=== PATIENT | female | born 1935 | race Caucasian/White ===

== ENCOUNTER 2016-12-14 18:58 | Emergency (ER) | payer MEDICARE, OTHER ==
[2016-12-14] MEDS ORDERED: NS 0.9% 1000 ML* 1,000 ML IV ONE (20:15)
--- NOTE | 2016-12-14 20:22 | ED ---
Willie Perez Benjamin, scribed for Pérez Jean Baptiste MD on 12/14/16 at 1959 . HPI Chest Pain - HPI Summary HPI Summary: 81yo female c/ on and off lower CP that radiates to the back this morning after breakfast. Episodes last for hrs. Pt took 2 advil pills, but didnt help. No previous CP episodes. Pt also reports nausea and vomiting x3. Still in pain currently. Denies SOB. - History of Current Complaint Chief Complaint: EDChestPainROMI Time Seen by Provider: 12/14/16 19:49 Hx Obtained From: Patient, Family/[employer] Sales Representative - Onset/Duration: Started Hours Ago, Atraumatic, Still Present Timing: Intermittent Initial Severity: Mild Current Severity: Mild Pain Intensity: 4 Pain Scale Used: 0-10 Numeric Chest Pain Location: Diffuse Chest Pain Radiates: Yes Chest Pain Radiates To:: Back Aggravating Factor(s): Nothing Alleviating Factor(s): Nothing Associated Signs and Symptoms: Positive: Chest Pain, Nausea, Vomiting - x3. Negative: Shortness of Breath - Allergy/Home Medications Allergies/Adverse Reactions: Allergies Allergy/AdvReac Type Severity Reaction Status Date / Time No Known Allergies Allergy Verified 12/14/16 19:29 PMH/Surg Hx/FS Hx/Imm Hx Cardiovascular History: Reports: Hx Hypercholesterolemia Musculoskeletal History: Denies: Hx Osteoporosis - Cancer History Cancer Type, Location and Year: left breast CA with lumpectomy Hx Chemotherapy: No Hx Radiation Therapy: Yes - Surgical History Surgery Procedure, Year, and Place: [facility]; Left breast CA with lumpectomy Infectious Disease History: No Infectious Disease History: Denies: Traveled Outside the [place] in Last 30 Days - Family History Known Family History: Positive: Cardiac Disease Negative: Hypertension, Diabetes - Social History Occupation: Retired Lives: With Family Alcohol Use: Rare Hx Substance Use: No Hx Tobacco Use: Yes Review of Systems Constitutional: Negative Eyes: Negative ENT: Negative Positive: Chest Pain - radiating to back Respiratory: Negative Positive: Vomiting, Nausea. Negative: Diarrhea Genitourinary: Negative Musculoskeletal: Negative Skin: Negative Neurological: Negative Psychological: Normal All Other Systems Reviewed And Are Negative: Yes Physical Exam Triage Information Reviewed: Yes Vital Signs On Initial Exam: Initial Vitals Temp Pulse Resp BP Pulse Ox 97.9 F 52 18 155/62 100 12/14/16 19:24 12/14/16 19:24 12/14/16 19:24 12/14/16 19:24 12/14/16 19:24 Vital Signs Reviewed: Yes Appearance: Positive: Well-Appearing, No Pain Distress Skin: Positive: Warm Head/Face: Positive: Normal Head/Face Inspection Eyes: Positive: ROGE ENT: Positive: Hearing grossly normal Neck: Positive: Supple Respiratory/Lung Sounds: Positive: Clear to Auscultation, Breath Sounds Present Cardiovascular: Positive: RRR Abdomen Description: Positive: Nontender, No Organomegaly, Soft Bowel Sounds: Positive: Present Musculoskeletal: Positive: Strength/ROM Intact Neurological: Positive: Alert, Oriented to Person Place, Time, Normal Gait Psychiatric: Positive: Affect/Mood Appropriate Diagnostics - Vital Signs Vital Signs Temp Pulse Resp BP Pulse Ox 12/14/16 19:24 97.9 F 52 18 155/62 100 - Laboratory Result Diagrams: 12/14/16 20:15 12/14/16 20:15 Lab Statement: Any lab studies that have been ordered have been reviewed, and results considered in the medical decision making process. - EKG 1931. Cardiac Rate: Bradycardia - 59bpm EKG Rhythm: Sinus Bradycardia ST Segment: Normal Ectopy: None Re-Evaluation - Re-Evaluation First Eval Change: Improved - remains pain free, wants to go home Chest Pain Course/Dx - Diagnoses Provider Diagnoses: Abdominal pain Discharge - Discharge Plan Condition: Stable Disposition: HOME Patient Education Materials: Abdominal Pain (ED), Diet for Stomach Ulcers and Gastritis (ED) Referrals: Non Staff,Doctor [Primary Care Provider] - The documentation as recorded by the Willie aguilar Benjamin accurately reflects the service I personally performed and the decisions made by me, Pérez Jean Baptiste MD.
[2016-12-14 20:26] LABS: Hematocrit 44 % (35-47); Hemoglobin 14.8 g/dl (12.0-16.0); Mean Corpuscular HGB Conc 33 g/dl (31-36); Mean Corpuscular Hemoglobin 30 pg (27-31); Mean Corpuscular Volume 90 fL (80-97); Mean Platelet Volume 8 um3 (7.4-10.4); Red Blood Count 4.92 10^6/ul (4.0-5.4); Red Cell Distribution Width 13 % (10.5-15); White Blood Count 7.5 10^3/ul (3.5-10.8)
[2016-12-14 20:47] LABS: Albumin 4.3 g/dL (3.2-5.2); C Reactive Protein 1.57 mg/L (< 5.00); Calcium 9.2 mg/dL (8.6-10.3); EGFR African American 86.8 (>60); EGFR Non-African American 67.5 (>60); Globulin 3.1 g/dL (2-4); Magnesium 2.1 mg/dL (1.9-2.7); Potassium 3.9 mmol/L (3.5-5.0); Total Bilirubin 0.3 mg/dL (0.2-1.0); Total Protein 7.4 g/dL (6.4-8.9)
[2016-12-14 21:51] LABS: Urine Bacteria Absent (Absent); Urine Bilirubin Negative (Negative); Urine Glucose Negative (Negative); Urine Nitrite Negative (Negative)
[2016-12-14 22:20] VITALS: BP 169/52
== END 2016-12-14 22:21 | disposition home or self-care (01) ==
LOC: ED 18:58
DX: R10.9 Unspecified abdominal pain (principal); E78.00 Pure hypercholesterolemia, unspecified
CPT/HCPCS: 36415; 80053; 81003; 81015; 83605; 83690; 83735; 84484; 85025; 86140; 87086; 93005; 99283

== ENCOUNTER 2016-12-23 11:18 | Emergency (ER) | payer MEDICARE, OTHER ==
[2016-12-23 12:52] LABS: Hematocrit 47 % (35-47); Hemoglobin 15.5 g/dl (12.0-16.0); Mean Corpuscular HGB Conc 33 g/dl (31-36); Mean Corpuscular Hemoglobin 30 pg (27-31); Mean Corpuscular Volume 91 fL (80-97); Mean Platelet Volume 8 um3 (7.4-10.4); Red Cell Distribution Width 13 % (10.5-15); White Blood Count 10.5 10^3/ul (3.5-10.8)
--- NOTE | 2016-12-23 12:53 | RAD ---
INDICATION: Chest pain COMPARISON: March 26, 2013 TECHNIQUE: PA and lateral dual-energy views were obtained. FINDINGS: Bones/Soft Tissues: There are no acute bony findings. Cardiomediastinal: The cardiomediastinal silhouette is normal. Lungs: There are no infiltrates. Pleura: There are no pleural effusions. Other: None IMPRESSION: NO ACTIVE DISEASE.
[2016-12-23 13:12] LABS: Albumin 4.3 g/dL (3.2-5.2); BUN/Creatinine Ratio 12.8 (8-20); Calcium 9.3 mg/dL (8.6-10.3); EGFR African American 90.7 (>60); EGFR Non-African American 70.5 (>60); Globulin 3.3 g/dL (2-4); Potassium 3.6 mmol/L (3.5-5.0); Total Bilirubin 1.1 mg/dL (0.2-1.0); Total Protein 7.6 g/dL (6.4-8.9)
[2016-12-23] MEDS ORDERED: Ondansetron INJ* 2 MG/ML VIAL IV ONE (15:31)
[2016-12-23] MEDS ORDERED: HYDROmorphone* 1 MG/ML 1 ML SYR IV ONE (15:31)
--- NOTE | 2016-12-23 15:34 | RAD ---
INDICATION: ] Right upper quadrant pain COMPARISON: None TECHNIQUE: Longitudinal and transverse scans of the right upper quadrant were obtained. Doppler interrogation of the hepatic and portal venous system was performed. FINDINGS: Liver: The liver is normal in size and echogenicity. There are no focal masses. The liver measures 14.6 cm in cephalocaudal dimension. Vessels: There is normal hepatic and portal venous flow. Bile ducts: There is no evidence of intrahepatic or extrahepatic ductal dilatation. The common duct measures 0.5 cm. Gallbladder: There are multiple tiny gallstones. There is no evidence of cholelithiasis, thickening of the gallbladder wall, or pericholecystic fluid. Pancreas: The visualized pancreas appears normal Right kidney: The right kidney is normal in size and echogenicity. There are no masses or calculi. There is no evidence of hydronephrosis. The right kidney measures 9.0 x 3.1 x 3.9 cm. IVC and aorta: The aorta and superior vena cava appear normal. Fluid: There is no ascites. Other: None. IMPRESSION: MULTIPLE TINY GALLSTONES
[2016-12-23 17:09] VITALS: BP 122/51
--- NOTE | 2016-12-23 18:31 | ED ---
Neto Perez Salem, scribed for Femi Del Real MD on 12/23/16 at 1157 . HPI Chest Pain - HPI Summary HPI Summary: Patient is a 81 y/o F who presents to the ED with upper thoracic pain since last night. She reports pain radiates around bilateral chest and into mid- sternum. Pt states that she was in the ED on 12/14/16 for the similar sx which resolved at that time with no medication. Pain is not aggravated with breathing , but it is worse with movement. She denies nausea, SOB, or edema of lower extremities, but reports an intermittent productive cough. 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 Negative : Shortness of Breath, Nausea, Edema - Allergy/Home Medications Allergies/Adverse Reactions: Allergies Allergy/AdvReac Type Severity Reaction Status Date / Time No Known Allergies Allergy Verified 12/14/16 19:29 PMH/Surg Hx/FS Hx/Imm Hx Cardiovascular History: Reports: Hx Hypercholesterolemia Musculoskeletal History: Denies: Hx Osteoporosis - Cancer History Cancer Type, Location and Year: left breast CA with lumpectomy Hx Chemotherapy: No Hx Radiation Therapy: Yes - Surgical History Surgery Procedure, Year, and Place: [facility]; Left breast CA with lumpectomy Infectious Disease History: No Infectious Disease History: Denies: Traveled Outside the [place] in Last 30 Days - Family History Known Family History: Positive: Cardiac Disease Negative: Hypertension, Diabetes - Social History Alcohol Use: Rare Hx Substance Use: No Substance Use Type: Reports: None Hx Tobacco Use: Yes Smoking Status (MU): Never Smoked Tobacco Review of Systems Positive: Chest Pain - Upper thoracic pain. Positive: Cough. Negative: Shortness Of Breath Negative: Nausea Negative: Edema All Other Systems Reviewed And Are Negative: Yes Physical Exam Triage Information Reviewed: Yes Vital Signs On Initial Exam: Initial Vitals Temp Pulse Resp BP Pulse Ox 97.7 F 59 20 152/56 100 12/23/16 11:21 12/23/16 11:21 12/23/16 11:21 12/23/16 11:21 12/23/16 11:21 Vital Signs Reviewed: Yes Appearance: Positive: Well-Appearing, No Pain Distress, Well-Nourished Skin: Positive: Warm, Skin Color Reflects Adequate Perfusion, Dry Head/Face: Positive: Normal Head/Face Inspection Eyes: Positive: Normal Neck: Positive: Supple, Nontender Respiratory/Lung Sounds: Positive: Clear to Auscultation, Breath Sounds Present Cardiovascular: Positive: RRR Abdomen Description: Positive: Soft, Other: - Tenderness in epigastric. Musculoskeletal: Positive: Normal Neurological: Positive: Normal Psychiatric: Positive: Normal, Affect/Mood Appropriate Diagnostics - Vital Signs Vital Signs Temp Pulse Resp BP Pulse Ox 12/23/16 11:21 97.7 F 59 20 152/56 100 - Laboratory Lab Results: Lab Results 12/23/16 12/23/16 12/23/16 Range/Units 12:43 12:43 12:43 WBC 10.5 (3.5-10.8) 10^3/ul RBC 5.20 (4.0-5.4) 10^6/ul Hgb 15.5 (12.0-16.0) g/dl Hct 47 (35-47) % MCV 91 (80-97) fL MCH 30 (27-31) pg MCHC 33 (31-36) g/dl RDW 13 (10.5-15) % Plt Count 225 (150-450) 10^3/ul MPV 8 (7.4-10.4) um3 Neut % (Auto) 85.4 H (38-83) % Lymph % (Auto) 9.8 L (25-47) % Fleming % (Auto) 4.3 (1-9) % Eos % (Auto) 0.1 (0-6) % Baso % (Auto) 0.4 (0-2) % Absolute Neuts (auto) 9.0 H (1.5-7.7) 10^3/ul Absolute Lymphs (auto) 1.0 (1.0-4.8) 10^3/ul Absolute Monos (auto) 0.5 (0-0.8) 10^3/ul Absolute Eos (auto) 0 (0-0.6) 10^3/ul Absolute Basos (auto) 0 (0-0.2) 10^3/ul Absolute Nucleated RBC 0.01 10^3/ul Nucleated RBC % 0 INR (Anticoag Therapy) (0.89-1.11) Sodium 137 (133-145) mmol/L Potassium 3.6 (3.5-5.0) mmol/L Chloride 99 L (101-111) mmol/L Carbon Dioxide 30 (22-32) mmol/L Anion Gap 8 (2-11) mmol/L BUN 10 (6-24) mg/dL Creatinine 0.78 (0.51-0.95) mg/dL Est GFR ( Amer) 90.7 (>60) Est GFR (Non-Af Amer) 70.5 (>60) BUN/Creatinine Ratio 12.8 (8-20) Glucose 128 H (70-100) mg/dL Lactic Acid 1.4 (0.5-2.0) mmol/L Calcium 9.3 (8.6-10.3) mg/dL Total Bilirubin 1.10 H (0.2-1.0) mg/dL AST 133 H (13-39) U/L ALT 53 H (7-52) U/L Alkaline Phosphatase 109 H (34-104) U/L Troponin I 0.00 (<0.04) ng/mL Total Protein 7.6 (6.4-8.9) g/dL Albumin 4.3 (3.2-5.2) g/dL Globulin 3.3 (2-4) g/dL Albumin/Globulin Ratio 1.3 (1-3) Lipase 37 (11.0-82.0) U/L 12/23/16 12/23/16 Range/Units 12:43 15:25 WBC (3.5-10.8) 10^3/ul RBC (4.0-5.4) 10^6/ul Hgb (12.0-16.0) g/dl Hct (35-47) % MCV (80-97) fL MCH (27-31) pg MCHC (31-36) g/dl RDW (10.5-15) % Plt Count (150-450) 10^3/ul MPV (7.4-10.4) um3 Neut % (Auto) (38-83) % Lymph % (Auto) (25-47) % Fleming % (Auto) (1-9) % Eos % (Auto) (0-6) % Baso % (Auto) (0-2) % Absolute Neuts (auto) (1.5-7.7) 10^3/ul Absolute Lymphs (auto) (1.0-4.8) 10^3/ul Absolute Monos (auto) (0-0.8) 10^3/ul Absolute Eos (auto) (0-0.6) 10^3/ul Absolute Basos (auto) (0-0.2) 10^3/ul Absolute Nucleated RBC 10^3/ul Nucleated RBC % INR (Anticoag Therapy) 0.88 L (0.89-1.11) Sodium (133-145) mmol/L Potassium (3.5-5.0) mmol/L Chloride (101-111) mmol/L Carbon Dioxide (22-32) mmol/L Anion Gap (2-11) mmol/L BUN (6-24) mg/dL Creatinine (0.51-0.95) mg/dL Est GFR ( Amer) (>60) Est GFR (Non-Af Amer) (>60) BUN/Creatinine Ratio (8-20) Glucose (70-100) mg/dL Lactic Acid (0.5-2.0) mmol/L Calcium (8.6-10.3) mg/dL Total Bilirubin (0.2-1.0) mg/dL AST (13-39) U/L ALT (7-52) U/L Alkaline Phosphatase (34-104) U/L Troponin I 0.00 (<0.04) ng/mL Total Protein (6.4-8.9) g/dL Albumin (3.2-5.2) g/dL Globulin (2-4) g/dL Albumin/Globulin Ratio (1-3) Lipase (11.0-82.0) U/L Result Diagrams: 12/23/16 12:43 12/23/16 12:43 Diagnostic Studies Comment: Trop 1: 0.00 Lab Statement: Any lab studies that have been ordered have been reviewed, and results considered in the medical decision making process. - Radiology CXR Radiology Interpretation Completed By: Radiologist - IMPRESSION: NO ACTIVE DISEASE. - Ultrasound No standard instances Ultrasound Interpretation Completed By: Radiologist - GALLBLADDER IMPRESSION: MULTIPLE TINY GALLSTONES - EKG 1236 EKG Interpretation: NSR @ 66 bpm. Re-Evaluation - Re-Evaluation First Eval Re-Evaluation Time: 16:11 Comment: Informed pt of consultation with Dr. Rasmussen. Chest Pain Course/Dx - Course Course Of Treatment: Ms. Stevens returned with a recurrence of the epigastric pain that she was here for earlier. She was tender in the epigastrium and RUQ and her WBCs were still OK but her AST, ALT, ALP and T.Bili were all a little elevated this time. An U/S of her RUQ was negative and her pain improved completely with some pain medicine. She is on pravastatin which can elevat transaminases and this could be a coincidence but I spole with Dr. Rasmussen about close F/U. - Diagnoses Provider Diagnoses: Epigastric abdominal pain - Provider Notifications Discussed Care Of Patient With: Alek Rasmussen Time Discussed With Above Provider: 16:03 Instructed by Provider To: Other - Discussed case. Admit/Transition Orders Completed By ED Provider: Yes Discharge - Discharge Plan Condition: Stable Disposition: HOME Prescriptions: Sucralfate TAB* [Carafate*] 1 gm PO QID #40 tab Patient Education Materials: Epigastric Pain (ED) Referrals: Alek Rasmussen MD [Medical Doctor] - Additional Instructions: Please stop taking the Pravastatin and start taking Sucralfate. Follow up with Dr. Rasmussen (GI). The documentation as recorded by the Neto aguilar Salem accurately reflects the service I personally performed and the decisions made by me, Femi Del Real MD.
== END 2016-12-23 17:08 | disposition home or self-care (01) ==
LOC: ED 11:18
DX: R10.13 Epigastric pain (principal); R07.9 Chest pain, unspecified; R05 Cough
CPT/HCPCS: 36415; 71020; 76705; 80053; 83605; 83690; 84484; 85025; 85610; 93005; 99283; J1170; J2405

== ENCOUNTER 2023-06-04 15:17 | Inpatient (IN) ==
[2023-06-04 15:58] LABS: ABS Basophils 0.1 10^3/uL (0.0-0.1); ABS Lymphocytes 1.4 10^3/uL (1.0-4.8); ABS Monocytes 0.4 10^3/uL (0.0-0.9); ABS Neutrophils 4.2 10^3/uL (1.5-7.6); Eosinophil % 0.6 %; Hematocrit 33.2 % (35-45); Hemoglobin 10.8 g/dL (11.5-14.3); Lymphocyte % 23.4 %; Mean Corpuscular Hemoglobin 25.6 pg (27-33); Mean Corpuscular Hgb Conc 32.5 g/dL (31-36); Mean Corpuscular Volume 78.7 fL (80-97); Mean Platelet Volume 6.8 fL (7.5-11.2); Platelet Count 431 10^3/uL (150-450); Red Blood Count 4.22 10^6/uL (3.63-4.92); White Blood Count 6.2 10^3/uL (3.8-11.8)
[2023-06-04 16:25] LABS: Albumin 3.1 g/dL (3.2-5.2); Albumin/Globulin Ratio 0.8 (1-3); Calcium 8.2 mg/dL (8.6-10.3); Creatinine, Serum 0.8 mg/dL (0.51-0.95); Globulin 3.8 g/dL (2-4); Potassium 2.6 mmol/L (3.5-5.0); Total Bilirubin 0.4 mg/dL (0.2-1.0); Total Protein 6.9 g/dL (6.4-8.9); eGFR CKD-EPI 70.4 (>60)
[2023-06-04] MEDS ORDERED: KCL 20 MEQ/100 ML IVPREMIX 20 MEQ/100 ML BAG IV ONE (16:25)
[2023-06-04 16:50] LABS: Urine Appearance Clear; Urine Bilirubin Negative (Negative); Urine Blood Negative (Negative); Urine Color Yellow; Urine Glucose Negative (Negative); Urine Ketones 2+ (Negative); Urine Nitrite Negative (Negative); Urine Protein 2+(100 mg/dL) (Negative); Urine Specific Gravity 1.018 (1.002-1.030); Urine Urobilinogen Negative (Negative)
[2023-06-04 16:56] LABS: Urine Bacteria Absent (Absent); Urine Red Blood Cell Trace(0-2/hpf) (Absent); Urine Squamous Epithelial Cell Present (Absent); Urine White Blood Cell Trace(0-5/hpf) (Absent)
[2023-06-04] MEDS ORDERED: cefTRIAXone 1 gm/50 mL D5W 1 GM/50 ML BAG IV ONE (18:10)
[2023-06-04] MEDS ORDERED: Iodixanol (CONTRAST) 320 MG/ML 100 ML SDV IV ONE (18:52)
[2023-06-04] MEDS ORDERED: Senna TAB 8.6 mg TAB PO PRN (19:41)
[2023-06-04] MEDS ORDERED: Polyethylene Glycol 3350 17 GM PACKET PO PRN (19:41)
[2023-06-04] MEDS: ACETAMINOPHEN IV SCH (21:12)
[2023-06-04] MEDS: KCL 20 MEQ/100 ML IVPREMIX 20 MEQ/100 ML BAG IV SCH (22:47)
[2023-06-04] MEDS: Lidocaine PATCH 5% PATCH TRANSDERM SCH (23:04)
[2023-06-04] MEDS: Enoxaparin 40 MG/0.4 ML SYR SUBCUT SCH (23:11)
[2023-06-05] MEDS: ACETAMINOPHEN IV SCH ×4 (03:30→21:02)
[2023-06-05] MEDS: KCL 20 MEQ/100 ML IVPREMIX 20 MEQ/100 ML BAG IV SCH ×3 (03:43→15:23)
[2023-06-05 05:55] LABS: ABS Basophils 0.1 10^3/uL (0.0-0.1); ABS Eosinophils 0.2 10^3/uL (0.0-0.5); ABS Lymphocytes 1.5 10^3/uL (1.0-4.8); ABS Monocytes 0.4 10^3/uL (0.0-0.9); ABS Neutrophils 3.9 10^3/uL (1.5-7.6); Eosinophil % 2.7 %; Hematocrit 30.7 % (35-45); Lymphocyte % 24.8 %; Mean Corpuscular Hemoglobin 25.8 pg (27-33); Mean Corpuscular Hgb Conc 32.8 g/dL (31-36); Mean Corpuscular Volume 78.7 fL (80-97); Mean Platelet Volume 7.1 fL (7.5-11.2); Nucleated Red Blood Cells % 0.1 %/100WBC (0.0-0.8); Platelet Count 349 10^3/uL (150-450); Red Cell Distribution Width 15.9 % (12-17); White Blood Count 6.1 10^3/uL (3.8-11.8)
[2023-06-05 06:38] LABS: TSH Ultra Thyroid Stim Horm 3.93 mcIU/mL (0.34-5.60)
[2023-06-05 06:42] LABS: Creatinine, Serum 0.63 mg/dL (0.51-0.95); Magnesium 1.8 mg/dL (1.9-2.7); Phosphorus 2.5 mg/dL (2.5-5.0); Potassium 3.3 mmol/L (3.5-5.0); eGFR CKD-EPI 84.7 (>60)
[2023-06-05 06:50] LABS: Folate 7.27 ng/mL (5.90-24.80)
[2023-06-05] MEDS ORDERED: Dextrose 50% VIAL 50 ml IV PRN (07:55)
[2023-06-05] MEDS ORDERED: Magnesium Sulfate 2 gm BAG 2 GM/50 ML BAG IVPB ONE (07:56)
[2023-06-05] MEDS ORDERED: Ferric Gluconate IV 125 MG in NS 0.9% 100 ml BAG 100 ML IVPB ONE (09:02)
[2023-06-05] MEDS: Enoxaparin 40 MG/0.4 ML SYR SUBCUT SCH (09:12)
[2023-06-05] MEDS: CMC:Pravastatin 20 mg TAB (NF) PO SCH (09:48)
[2023-06-05] MEDS: Lidocaine PATCH 5% PATCH TRANSDERM SCH (09:53)
[2023-06-06] MEDS: ACETAMINOPHEN IV SCH ×4 (03:05→21:05)
[2023-06-06 06:22] LABS: ABS Basophils 0.1 10^3/uL (0.0-0.1); ABS Eosinophils 0.3 10^3/uL (0.0-0.5); ABS Lymphocytes 1.5 10^3/uL (1.0-4.8); ABS Monocytes 0.4 10^3/uL (0.0-0.9); ABS Neutrophils 3.5 10^3/uL (1.5-7.6); Eosinophil % 5.1 %; Hematocrit 28.8 % (35-45); Hemoglobin 9.3 g/dL (11.5-14.3); Lymphocyte % 26.2 %; Mean Corpuscular Hemoglobin 25.5 pg (27-33); Mean Corpuscular Hgb Conc 32.2 g/dL (31-36); Mean Corpuscular Volume 79.2 fL (80-97); Mean Platelet Volume 7.1 fL (7.5-11.2); Nucleated Red Blood Cells % 0.1 %/100WBC (0.0-0.8); Platelet Count 371 10^3/uL (150-450); Red Blood Count 3.63 10^6/uL (3.63-4.92); Red Cell Distribution Width 15.9 % (12-17); White Blood Count 5.8 10^3/uL (3.8-11.8)
[2023-06-06 06:40] LABS: Albumin 2.6 g/dL (3.2-5.2); Albumin/Globulin Ratio 0.8 (1-3); Calcium 7.9 mg/dL (8.6-10.3); Creatinine, Serum 0.75 mg/dL (0.51-0.95); Globulin 3.4 g/dL (2-4); Magnesium 2.2 mg/dL (1.9-2.7); Potassium 3.9 mmol/L (3.5-5.0); Total Bilirubin 0.3 mg/dL (0.2-1.0); eGFR CKD-EPI 76.1 (>60)
[2023-06-06] MEDS: CMC:Pravastatin 20 mg TAB (NF) PO SCH (11:46)
[2023-06-06] MEDS: Lidocaine PATCH 5% PATCH TRANSDERM SCH (11:49)
[2023-06-06 11:59] LABS: Body Fluid Total Nucleated 1788 /mcL
[2023-06-06 14:53] LABS: Body Fluid Appearance Cloudy; Body Fluid Color Red; Body Fluid Mono 5 %; Body Fluid Source Pleural Fluid; Body Fluid Total Cells Counted 200
[2023-06-06] MEDS: Enoxaparin 40 MG/0.4 ML SYR SUBCUT SCH (21:03)
[2023-06-06] MEDS: Senna TAB 8.6 mg TAB PO SCH (21:04)
[2023-06-07] MEDS: ACETAMINOPHEN IV SCH ×3 (03:37→15:56)
[2023-06-07] MEDS: Enoxaparin 40 MG/0.4 ML SYR SUBCUT SCH (08:43)
[2023-06-07] MEDS: CMC:Pravastatin 20 mg TAB (NF) PO SCH (08:44)
[2023-06-07] MEDS: Lidocaine PATCH 5% PATCH TRANSDERM SCH (08:44)
[2023-06-07 14:06] VITALS: BP 135/65
[2023-06-07 14:22] LABS: Lactate Dehydrogenase, BF 636 U/L
[2023-06-07] MEDS ORDERED: Morphine ORAL CONCENTRATE 5 MG/0.25 ML ORAL.SYRIN SL PRN ×2 (17:00→17:01)
[2023-06-07] MEDS: Morphine ORAL CONCENTRATE 5 MG/0.25 ML ORAL.SYRIN SL SCH (17:16)
[2023-06-07] MEDS: Senna TAB 8.6 mg TAB PO SCH (21:25)
[2023-06-08] MEDS: Morphine ORAL CONCENTRATE 5 MG/0.25 ML ORAL.SYRIN SL SCH ×2 (01:02→05:52)
[2023-06-08 04:31] LABS: Rapid COVID-19 Molecular Undetected (Undetected)
[2023-06-08] MEDS ORDERED: Polyethylene Glycol 3350 17 GM PACKET PO SCH (09:00)
[2023-06-08 10:54] LABS: Albumin, BF 1.5 g/dL
[2023-06-08 11:13] LABS: Glucose, BF 78 mg/dL; Total Protein, BF 3.2 g/dL
[2023-06-08 11:16] LABS: Total Protein, BF 3.1 g/dL
== END 2023-06-08 09:25 | disposition hospice, home (50) | DRG 176 ==
LOC: EDHOLD 15:17 → ED 15:17 → SUATTDRO 19:38 → MEDTELE 22:00 → MED 06-05 09:07
PROVIDERS: ADMIT Internal Medicine; ATTEND Hospitalist